=== PATIENT | female | born 1950 | race Caucasian/White ===

== ENCOUNTER 2017-11-30 09:39 | Day surgery (SDC) | payer MEDICARE, BC ==
[2017-11-30] MEDS ORDERED: Midazolam 1 MG/ML 2 ML SDV IV ONE (09:40)
[2017-11-30] MEDS ORDERED: Dexamethasone 4 MG/ML SDV IV ONE (09:40)
[2017-11-30] MEDS ORDERED: Sodium Chloride 0.9% 10 ML Syringe IV ONE (09:40)
[2017-11-30] MEDS ORDERED: Timolol Maleate 0.5% Ophth Soln 5 ML Bottle EYELF ONE (10:00)
[2017-11-30] MEDS ORDERED: Ondansetron 4 MG/2 ML SDV IVPUSH PRN (10:00)
[2017-11-30] MEDS ORDERED: Acetaminophen 325 MG Tab PO PRN (10:00)
[2017-11-30] MEDS ORDERED: Cataract Ophth Solution EYELF ONE (10:00)
[2017-11-30] MEDS ORDERED: Phenylephrine 10% Ophth Soln 5 ML Bot EYELF ONE (10:00)
[2017-11-30] MEDS ORDERED: Sodium Chloride 0.9% 10 ML Syringe FLUSH PRN (10:00)
[2017-11-30] MEDS ORDERED: Povidone-Iodine 5% Sterile Ophth Soln 30 ML Bottle EYELF ONE ×2 (10:00→11:14)
[2017-11-30] MEDS ORDERED: Phenylephrine 10% Ophth Soln 5 ML Bot EYELF PRN (10:00)
[2017-11-30] MEDS ORDERED: Proparacaine 0.5% Ophth Soln 15 ML Bottle EYELF ONE (10:00)
[2017-11-30] MEDS ORDERED: Moxifloxacin 0.5% Ophth Soln 3 ML Bottle EYELF ONE (10:00)
[2017-11-30] MEDS ORDERED: Tetracaine HCl/PF 0.5% 4 ML Bottle EYELF ONE (11:13)
[2017-11-30] MEDS ORDERED: Lidocaine 1% 30 ML SDV ONE (11:14)
[2017-11-30] MEDS ORDERED: Vancomycin 500 MG SDV EYELF ONE (11:14)
[2017-11-30] MEDS ORDERED: Balanced Salt Solution Ophth Irrig 500 ML Bottle IOCULAR ONE (11:15)
[2017-11-30] MEDS ORDERED: Chondroitin Sulfate/Hyaluronate Sodium Ophth Inj 0.75 ML Syringe EYELF ONE (11:16)
[2017-11-30] MEDS ORDERED: Dexamethasone/Neomycin/Polymyxin B Ophth Oint 3.5 GM Tube EYELF ONE (11:17)
[2017-11-30] MEDS ORDERED: Apraclonidine 0.5% Ophth Soln 5 ML Bot EYELF ONE (11:17)
--- NOTE | 2017-11-30 12:05 | OR ---
DATE: 11/30/2017 PREOPERATIVE DIAGNOSIS: Visually significant mixed cataract, left eye. POSTOPERATIVE DIAGNOSIS: Visually significant mixed cataract, left eye. PROCEDURE: Extracapsular cataract extraction with intraocular lens implant, left eye. ANESTHESIA: Topical/local MAC. COMPLICATIONS: None. INDICATION: Ms. Lee was seen in the clinic with complaints of blurred vision. Clinical examination reveals visually significant cataract. I explained options; I offered cataract surgery; and I explained risks including but not limited to infection, retinal detachment, loss of vision, and need for additional surgery. We discussed implant options. She has requested surgery with a monofocal implant. She does have preexisting corneal astigmatism, and she understands that her vision will be slightly limited without glasses. She has voiced an understanding with respect to risks, limitations, and wished to proceed. OPERATIVE DESCRIPTION: After informed consent was obtained and the risks, benefits, and alternatives were explained, the patient was brought to the operative suite and topical anesthesia was administered. The patient was then prepped and draped in the sterile fashion, and attention was placed on the left eye. A sterile lid speculum was placed into the left eye to allow operative exposure. A full-thickness paracentesis was made in the temporal portion of the operative eye. Preservative-free lidocaine 0.1 mL was injected into the anterior chamber followed by viscoelastic. A full-thickness corneal incision was then made into the anterior chamber. A bent needle cystotome was used to create a small kolby in the anterior capsule. The capsulorrhexis forceps was then used to create a 360-degree curvilinear capsulorrhexis. The nucleus was then removed using a phacoemulsification handpiece, and the remaining cortical material was then removed with irrigation and aspiration handpiece. Following removal of the cortical material, the capsular bag was then inspected and noted to be free of any holes or tears. Viscoelastic was then injected into the capsular bag, and the intraocular lens was inserted into the capsular bag. The viscoelastic material was then removed from both the anterior and posterior chambers and from behind the IOL. The lens and capsular bag were then reinspected. The IOL was well centered and the capsular bag intact. The wound and paracentesis sites were inspected and hydrated with balanced saline solution. Both were found to be self-sealing. The intraocular pressure was assessed digitally and found to be within normal range. A good red reflex was noted at the completion of the procedure. No complications occurred during the operation. At the completion of the procedure, Maxitrol, Voltaren, and Iopidine drops were placed into the operative eye. A sterile eye shield was placed over the operative eye, and the patient was transported to the postoperative recovery area having tolerated the procedure well. Postoperative instructions were given along with a postoperative appointment. The patient was advised to call with any questions or concerns. [facility] /[id number]
== END 2017-11-30 12:19 | disposition home or self-care (01) ==
LOC: DL.SDS 09:39
PROVIDERS: ATTEND Ophthalmology
DX: H25.812 Combined forms of age-related cataract, left eye (principal); J45.909 Unspecified asthma, uncomplicated; E78.5 Hyperlipidemia, unspecified; I10 Essential (primary) hypertension; E66.9 Obesity, unspecified; Z79.899 Other long term (current) drug therapy
CPT/HCPCS: 00142; A9270-GY; J1100; J2250; J3370; J7050; V2632

== ENCOUNTER 2017-12-07 06:35 | Day surgery (SDC) | payer MEDICARE, BC ==
[2017-12-07] MEDS ORDERED: Dexamethasone 4 MG/ML SDV IV ONE (06:36)
[2017-12-07] MEDS ORDERED: Sodium Chloride 0.9% 10 ML Syringe IV ONE (06:36)
[2017-12-07] MEDS ORDERED: Midazolam 1 MG/ML 2 ML SDV IV ONE (06:36)
[2017-12-07] MEDS ORDERED: Acetaminophen 325 MG Tab PO PRN (07:00)
[2017-12-07] MEDS ORDERED: Phenylephrine 10% Ophth Soln 5 ML Bot EYERT ONE (07:00)
[2017-12-07] MEDS ORDERED: Sodium Chloride 0.9% 10 ML Syringe FLUSH PRN (07:00)
[2017-12-07] MEDS ORDERED: Ondansetron 4 MG/2 ML SDV IVPUSH PRN (07:00)
[2017-12-07] MEDS ORDERED: Moxifloxacin 0.5% Ophth Soln 3 ML Bottle EYERT ONE (07:00)
[2017-12-07] MEDS ORDERED: Timolol Maleate 0.5% Ophth Soln 5 ML Bottle EYERT ONE (07:00)
[2017-12-07] MEDS ORDERED: Phenylephrine 10% Ophth Soln 5 ML Bot EYERT PRN (07:00)
[2017-12-07] MEDS ORDERED: Proparacaine 0.5% Ophth Soln 15 ML Bottle EYERT ONE (07:00)
[2017-12-07] MEDS ORDERED: Cataract Ophth Solution EYERT ONE (07:00)
[2017-12-07] MEDS ORDERED: Povidone-Iodine 5% Sterile Ophth Soln 30 ML Bottle EYERT ONE ×2 (07:00→08:11)
[2017-12-07] MEDS ORDERED: Tetracaine HCl/PF 0.5% 4 ML Bottle EYERT ONE (08:10)
[2017-12-07] MEDS ORDERED: Lidocaine 1% 30 ML SDV INJECT ONE (08:16)
[2017-12-07] MEDS ORDERED: Vancomycin 500 MG SDV EYERT ONE (08:17)
[2017-12-07] MEDS ORDERED: Balanced Salt Solution Ophth Irrig 500 ML Bottle IOCULAR ONE (08:18)
[2017-12-07] MEDS ORDERED: Chondroitin Sulfate/Hyaluronate Sodium Ophth Inj 0.75 ML Syringe EYERT ONE (08:19)
[2017-12-07] MEDS ORDERED: Dexamethasone/Neomycin/Polymyxin B Ophth Oint 3.5 GM Tube EYERT ONE (08:27)
[2017-12-07] MEDS ORDERED: Apraclonidine 0.5% Ophth Soln 5 ML Bot EYERT ONE (08:27)
--- NOTE | 2017-12-07 14:51 | OR ---
DATE: 12/07/2017 PREOPERATIVE DIAGNOSIS: Visually significant mixed cataract, right eye. POSTOPERATIVE DIAGNOSIS: Visually significant mixed cataract, right eye. PROCEDURE: Extracapsular cataract extraction with intraocular lens implant, right eye. ANESTHESIA: Topical/local MAC. COMPLICATIONS: None. INDICATION: Ms. Lee was seen in the clinic. She complains of starburst around lights, glare, difficulty with bright lights and glare, and a progressive change in vision. Clinical examination reveals mixed nuclear, cortical, and posterior subcapsular cataract. I explained options; offered cataract surgery; and I explained risks preoperatively including the potential for infection, retinal detachment, loss of vision, and need for additional surgery amongst others. We discussed implant options. She has requested a monofocal implant. She understands that she may require glasses following surgery. OPERATIVE DESCRIPTION: After informed consent was obtained and the risks, benefits, and alternatives were explained, the patient was brought to the operative suite and topical anesthesia was administered. The patient was then prepped and draped in the sterile fashion and attention was placed on the right eye. A sterile lid speculum was placed into the right eye to allow operative exposure. A full-thickness paracentesis was made in the temporal portion of the operative eye. Preservative-free lidocaine 0.1 mL was injected into the anterior chamber followed by viscoelastic. A full-thickness corneal incision was then made into the anterior chamber. A bent needle cystotome was used to create a small kolby in the anterior capsule. The capsulorrhexis forceps was then used to create a 360-degree curvilinear capsulorrhexis. The nucleus was then removed using a phacoemulsification handpiece, and the remaining cortical material was then removed with irrigation and aspiration handpiece. Following removal of the cortical material, the capsular bag was then inspected and noted to be free of any holes or tears. Viscoelastic was then injected into the capsular bag, and the intraocular lens was inserted into the capsular bag. The viscoelastic material was then removed from both the anterior and posterior chambers and from behind the IOL. The lens and capsular bag were then reinspected. The IOL was well centered and the capsular bag intact. The wound and paracentesis sites were inspected and hydrated with balanced saline solution. Both were found to be self-sealing. The intraocular pressure was assessed digitally and found to be within normal range. A good red reflex was noted at the completion of the procedure. No complications occurred during the operation. At the completion of the procedure, Maxitrol, Voltaren, and Iopidine drops were placed into the operative eye. A sterile eye shield was placed over the operative eye, and the patient was transported to the postoperative recovery area having tolerated the procedure well. Postoperative instructions were given along with a postoperative appointment. The patient was advised to call with any questions or concerns. [facility] /[id number]
== END 2017-12-07 09:30 | disposition home or self-care (01) ==
LOC: DL.SDS 06:35
PROVIDERS: ATTEND Ophthalmology
DX: H25.811 Combined forms of age-related cataract, right eye (principal); J45.909 Unspecified asthma, uncomplicated; I10 Essential (primary) hypertension; E78.5 Hyperlipidemia, unspecified; Z79.899 Other long term (current) drug therapy
CPT/HCPCS: 66984; A9270; J3370; J7050; 00142; J1100; J2250; V2632

== ENCOUNTER 2021-07-19 13:21 | Observation (INO) | payer MEDICARE, BC ==
[2021-07-19] MEDS ORDERED: Sodium Chloride 0.9% 10 ML Syringe FLUSH PRN (14:02)
[2021-07-19 14:30] LABS: PTT,PARTIAL THROMBOPLSTIN TIME 29.4 SEC (22.0-34.0)
[2021-07-19 14:34] LABS: ANION GAP 18.7 mEq/L (7-13); CHLORIDE,CL 98 mmol/L (98-107); SODIUM,NA 137 mmol/L (136-145)
[2021-07-19 14:50] LABS: CORONAVIRUS COVID-19 NAA NEGATIVE (NEGATIVE)
--- NOTE | 2021-07-19 14:57 | EDM.PDOC ---
<Herber Chambers - Last Filed: 07/19/21 16:06> ED HPI GENERAL MEDICAL PROBLEM - General Chief Complaint: Respiratory Problem Stated Complaint: SEVERE COLD Time Seen by Provider: 07/19/21 14:40 Source of Information: Reports: Patient, Old Records, RN History Limitations: Reports: No Limitations - History of Present Illness INITIAL COMMENTS - FREE TEXT/NARRATIVE: Patient is a 71 yo female with PMH of hypertension, T2DM, polycythemia vera, and hyperlipidemia who presents to the ED for shortness of breath. Symptoms started 07/12. Patient endorses SOB, cough, "full lungs", and diarrhea. She came in today due to her lungs feeling full and increased shortness of breath when she lays down. Nothing makes her symptoms better. Denies fever, chills, chest pain, palpitations, lower extremity edema, nausea, emesis, sick contacts, and covid exposure. Patient does see Dr. Bull for her polycythemia vera and gets routine blood letting. Generalized Pain Score (Numeric/FACES): 5 - Related Data Allergies Allergy/AdvReac Type Severity Reaction Status Date / Time No Known Allergies Allergy Verified 07/19/21 14:17 Home Meds: Home Meds Allopurinol [Zyloprim] 300 mg PO ASDIRECTED 07/19/21 [History] Aspirin 81 mg PO 07/19/21 [History] Furosemide 20 mg PO ASDIRECTED 07/19/21 [History] Hydroxyurea [Hydrea] 1,000 mg PO ACDINNER 07/19/21 [History] Hydroxyurea [Hydrea] 500 mg PO ASDIRECTED 07/19/21 [History] Losartan Potassium 100 mg PO 07/19/21 [History] atorvaSTATin [Lipitor] 20 mg PO BEDTIME 07/19/21 [History] metFORMIN [Glucophage] 500 mg PO BIDMEALS 07/19/21 [History] Past Medical History HEENT History: Reports: Cataract, Impaired Vision Other HEENT History: WEARS CORRECTIVE. CATARACT SURGERY TO LEFT EYE Cardiovascular History: Reports: Arrhythmia, High Cholesterol, Hypertension, Other (See Below) Other Cardiovascular History: HX OF VALVE PROLAPSE, PT STATES SHE NO LONGER HAS IT Respiratory History: Reports: Asthma, Bronchitis, Recurrent, Pneumonia, Recurrent Gastrointestinal History: Reports: None Genitourinary History: Reports: None GREEN END MAN History: Reports: Musculoskeletal History: Reports: Arthritis, Fracture, Other (See Below) Other Musculoskeletal History: degenerative disc disease. HX OF HAIR LINE FRACTURE IN RIGHT FOOT Neurological History: Reports: Migraines Psychiatric History: Reports: None Endocrine/Metabolic History: Reports: None, Diabetes, Type II Hematologic History: Reports: Anemia Other Hematologic History: HX OF ANEMIA WHEN SHE WAS 13 Immunologic History: Reports: None Oncologic (Cancer) History: Reports: None Dermatologic History: Reports: None - Infectious Disease History Infectious Disease History: Reports: Chicken Pox, Measles, Mumps - Past Surgical History Head Surgeries/Procedures: Reports: None HEENT Surgical History: Reports: Cataract Surgery, Tonsillectomy Cardiovascular Surgical History: Reports: None Respiratory Surgical History: Reports: None GI Surgical History: Reports: Appendectomy, Other (See Below) Other GI Surgeries/Procedures: SIGMOID SCOPE Female Surgical History: Reports: Other (See Below) Other Female Surgeries/Procedures: endometrial bx Endocrine Surgical History: Reports: None Neurological Surgical History: Reports: None Musculoskeletal Surgical History: Reports: None Oncologic Surgical History: Reports: None Dermatological Surgical History: Reports: None Social & Family History - Family History Family Medical History: No Pertinent Family History - Tobacco Use Tobacco Use Status *Q: Unknown Ever Used Tobacco - Caffeine Use Caffeine Use: Reports: None Other Caffeine Use: 1-2 SODA POP DAILY - Recreational Drug Use Recreational Drug Use: No ED ROS GENERAL - Review of Systems Review Of Systems: See Below Constitutional: Reports: No Symptoms. Denies: Fever, Chills HEENT: Reports: No Symptoms Respiratory: Reports: Shortness of Breath, Cough Cardiovascular: Reports: Dyspnea on Exertion. Denies: Chest Pain, Blood Pressure Problem, Edema Endocrine: Reports: No Symptoms GI/Abdominal: Reports: Diarrhea. Denies: Abdominal Pain, Hematochezia, Melena Musculoskeletal: Reports: No Symptoms Skin: Reports: No Symptoms Neurological: Reports: No Symptoms Psychiatric: Reports: No Symptoms Hematologic/Lymphatic: Reports: No Symptoms Immunologic: Reports: No Symptoms ED EXAM, GENERAL - Physical Exam Exam: See Below Exam Limited By: No Limitations General Appearance: Alert, WD/WN, No Apparent Distress Eye Exam: Bilateral Eye: EOMI, PERRL Nose: Normal Inspection Throat/Mouth: Normal Inspection Head: Atraumatic, Normocephalic Neck: Normal Inspection Respiratory/Chest: No Respiratory Distress, Decreased Breath Sounds (bilaterally). No: Crackles, Rales, Rhonchi, Wheezing Cardiovascular: Normal Peripheral Pulses, No Edema, No Gallop, No JVD, No Murmur, No Rub, Tachycardia GI/Abdominal: Normal Bowel Sounds, Soft, Non-Tender, No Organomegaly, No Distention, No Abnormal Bruit, No Mass Extremities: Normal Inspection, Normal Range of Motion Neurological: Alert, Oriented, CN II-XII Intact, Normal Cognition, Normal Gait, Normal Reflexes, No Motor/Sensory Deficits Psychiatric: Normal Affect, Normal Mood Skin Exam: Warm, Dry, Intact, Normal Color, No Rash Lymphatic: No Adenopathy #1 Interpretation EKG Date: 07/19/21 Time: 14:30 Rhythm: Other (Sinus tachycardia) Rate (Beats/Min): 120 Malone: Other ([place] RAD) P-Wave: Present QRS: Normal ST-T: Normal QT: Normal Comparison: NA - No Prior EKG EKG Interpretation Comments: Sinus tachycardia. No st changes. Boarder line right axis deviation. Departure - Departure Time of Disposition: 16:06 Disposition: Refer to Observation Condition: Good Clinical Impression: Community acquired bacterial pneumonia - Discharge Information *PRESCRIPTION DRUG MONITORING PROGRAM REVIEWED*: Not Applicable *COPY OF PRESCRIPTION DRUG MONITORING REPORT IN PATIENT TG: Not Applicable Forms: ED Department Discharge - Assessment/Plan Plan: Patient is a 71-year-old female being seen today for shortness of breath. Labs and imaging were performed in the emergency department. CT is significant for right middle lobe pneumonia. Due to patient's tachycardia, tachypnea, and low oxygen saturation we will plan on admitting her to the hospital. Discussed the case with Dr. Umana who agrees to admitting the patient. We will start her on Rocephin and azithromycin in the emergency department. Patient is agreeable to this plan. <Benja Snow - Last Filed: 07/19/21 16:48> Course - Vital Signs Last Recorded V/S: Last Vital Signs Temp 98.6 F 07/19/21 14:14 Pulse 128 H 07/19/21 14:14 Resp 24 H 07/19/21 14:14 BP 132/98 H 07/19/21 14:14 Pulse Ox 90 L 07/19/21 14:14 - Orders/Labs/Meds Orders: Active Orders 24 hr Category Date Time Status Admission Diagnosis [ADT] Stat ADT 07/19/21 16:09 Ordered Admission Status [Patient Status] [ADT] Routine ADT 07/19/21 16:09 Active Peripheral IV Care [RC] . DIRECTED Care 07/19/21 14:02 Active CBC WITH AUTO DIFF [HEME] Stat Lab 07/19/21 13:45 Results CULTURE BLOOD [BC] Stat Lab 07/19/21 13:45 Received CULTURE BLOOD [BC] Stat Lab 07/19/21 14:02 Ordered MANUAL DIFFERENTIAL QA/NC [HEME] Stat Lab 07/19/21 13:45 Results UA RFX LIDIA AND CULT IF INDIC [URIN] Stat Lab 07/19/21 16:06 Ordered Azithromycin [Zithromax] 500 mg Med 07/19/21 15:58 Active Sodium Chloride 0.9% [Normal Saline AdvBag] 250 ml IV ONETIME Sodium Chloride 0.9% [Saline Flush] Med 07/19/21 14:02 Active 10 ml FLUSH ASDIRECTED PRN Blood Culture x2 Reflex Set [OM.PC] Stat Oth 07/19/21 14:01 Ordered Peripheral IV Insertion Adult [OM.PC] Stat Oth 07/19/21 14:02 Ordered Medication Orders Azithromycin 500 mg/ Sodium (Chloride) 250 mls @ 250 mls/hr IV ONETIME ONE Stop: 07/19/21 16:57 Last Admin: 07/19/21 16:31 Dose: 250 mls/hr Documented by: SOFIE Sodium Chloride (Sodium Chloride 0.9% 10 Ml Syringe) 10 ml FLUSH ASDIRECTED PRN PRN Reason: Keep Vein Open Labs: Laboratory Tests 07/19/21 07/19/21 07/19/21 Range/Units 13:45 13:45 13:45 WBC 28.7 H* (5.0-10.0) 10^3/uL RBC 4.19 L (4.2-5.4) 10^6/uL Hgb 13.9 (12.0-16.0) g/dL Hct 42.2 (37.0-47.0) % MCV 100.7 H (80-100) fL MCH 33.2 (27.0-34.0) pg MCHC 32.9 L (33.0-35.0) g/dL Plt Count 263 (150-450) 10^3/uL Neut % (Auto) 91.4 H (42.2-75.2) % Lymph % (Auto) 2.4 L (20.5-50.1) % [place] % (Auto) 6.0 (2-8) % Eos % (Auto) 0.0 L (1.0-3.0) % Baso % (Auto) 0.2 (0.0-1.0) % Add Manual Diff Yes PT (9.0-12.0) SEC INR (0.9-1.2) APTT (22.0-34.0) SEC D-Dimer, Quantitative (0-400) ng/mL Sodium 137 (136-145) mmol/L Potassium 4.7 (3.5-5.1) mmol/L Chloride 98 (98-107) mmol/L Carbon Dioxide 25 (21-32) mmol/L Anion Gap 18.7 H (7-13) mEq/L BUN 25 H (7-18) mg/dL Creatinine 0.91 (0.55-1.02) mg/dL Est Cr Clr Drug Dosing 46.23 mL/min Estimated GFR (MDRD) > 60 BUN/Creatinine Ratio 27.5 (No establ ref range) Glucose 139 H (70-99) mg/dL Lactic Acid (0.4-2.0) mmol/L Calcium 9.3 (8.5-10.1) mg/dL Magnesium 2.2 (1.8-2.4) mg/dL Ferritin (8-252) mg/mL Total Bilirubin 1.3 H (0.2-1.0) mg/dL AST 41 H (15-37) U/L ALT 17 (14-59) U/L Alkaline Phosphatase 141 H (46-116) U/L Troponin I High Sens 23 (<=51) pg/mL C-Reactive Protein < 0.2 (0.0-0.9) mg/dL B-Natriuretic Peptide 85 (0-100) pg/ml Total Protein 8.0 (6.4-8.2) g/dL Albumin 2.9 L (3.4-5.0) g/dL Globulin 5.1 Albumin/Globulin Ratio 0.57 Influenza Type A RNA Negative (NEGATIVE) Influenza Type B RNA Negative (NEGATIVE) SARS-CoV-2 RNA ([place]AT[place]INA) Negative (NEGATIVE) 07/19/21 07/19/2121 Range/Units 13:45 13:45 13:45 WBC (5.0-10.0) 10^3/uL RBC (4.2-5.4) 10^6/uL Hgb (12.0-16.0) g/dL Hct (37.0-47.0) % MCV (80-100) fL MCH (27.0-34.0) pg MCHC (33.0-35.0) g/dL Plt Count (150-450) 10^3/uL Neut % (Auto) (42.2-75.2) % Lymph % (Auto) (20.5-50.1) % [place] % (Auto) (2-8) % Eos % (Auto) (1.0-3.0) % Baso % (Auto) (0.0-1.0) % Add Manual Diff PT 10.7 (9.0-12.0) SEC INR 1.1 (0.9-1.2) APTT 29.4 (22.0-34.0) SEC D-Dimer, Quantitative 2020 H (0-400) ng/mL Sodium (136-145) mmol/L Potassium (3.5-5.1) mmol/L Chloride (98-107) mmol/L Carbon Dioxide (21-32) mmol/L Anion Gap (7-13) mEq/L BUN (7-18) mg/dL Creatinine (0.55-1.02) mg/dL Est Cr Clr Drug Dosing mL/min Estimated GFR (MDRD) BUN/Creatinine Ratio (No establ ref range) Glucose (70-99) mg/dL Lactic Acid 1.6 (0.4-2.0) mmol/L Calcium (8.5-10.1) mg/dL Magnesium (1.8-2.4) mg/dL Ferritin 230 (8-252) mg/mL Total Bilirubin (0.2-1.0) mg/dL AST (15-37) U/L ALT (14-59) U/L Alkaline Phosphatase (46-116) U/L Troponin I High Sens (<=51) pg/mL C-Reactive Protein (0.0-0.9) mg/dL B-Natriuretic Peptide (0-100) pg/ml Total Protein (6.4-8.2) g/dL Albumin (3.4-5.0) g/dL Globulin Albumin/Globulin Ratio Influenza Type A RNA (NEGATIVE) Influenza Type B RNA (NEGATIVE) SARS-CoV-2 RNA (KATARINA) (NEGATIVE) Meds: Medications Generic Name Dose Route Start Last Admin Trade Name Freq PRN Reason Stop Dose Admin Azithromycin 500 mg/ Sodium 250 mls @ 250 mls/hr 07/19/21 15:58 07/19/21 16:31 Chloride IV 07/19/21 16:57 250 mls/hr ONETIME ONE Administration Sodium Chloride 10 ml 07/19/21 14:02 Sodium Chloride 0.9% 10 Ml Syringe FLUSH ASDIRECTED PRN Keep Vein Open Discontinued Medications Generic Name Dose Route Start Last Admin Trade Name Freq PRN Reason Stop Dose Admin Ceftriaxone Sodium 2 gm/ 100 mls @ 200 mls/hr 07/19/21 15:57 07/19/21 16:30 Sodium Chloride IV 07/19/21 16:26 200 mls/hr ONETIME ONE Administration Iopamidol 100 ml 07/19/21 15:14 07/19/21 15:42 Iopamidol 755 Mg/Ml 100 Ml Bottle IVPUSH 07/19/21 15:15 57 ml ONETIME ONE Administration - Radiology Interpretation Free Text/Narrative:: [facility] Final Radiology Report Call: [phone] assistance Online chat: [email or web address] Name: REINIER SUTTON Age: 71Years F Date: 07/19/2021 SSN: -- : [id number] Study: CT CHEST W CONT Requesting Physician: Herber Chambers Images: [id number] Addl Studies: Provided Clinical History: SOB w/ elevated ddimer Contrast: With Contrast Medium: Isovue 300 Contrast Amount: 57 mL Contrast Method: Intravenous (IV) Page 1 of 2 PROCEDURE INFORMATION: Exam: CT Chest With Contrast; Diagnostic Exam date and time: 07/19/2021 3:22 PM Age: 71 years old Clinical indication: Other: SOB w/ elevated ddimer TECHNIQUE: Imaging protocol: Diagnostic computed tomography of the chest with contrast. Radiation optimization: All CT scans at this facility use at least one of these dose optimization techniques: automated exposure control; mA and/or kV adjustment per patient size (includes targeted exams where dose is matched to clinical indication); or iterative reconstruction. Contrast material: ISOVUE 300; Contrast volume: 57 ml; Contrast route: INTRAVENOUS (IV); COMPARISON: CT Chest w Cont 09/22/2020 9:15 AM FINDINGS: Lungs: Patchy consolidation in the right upper lobe. Persistent atelectasis of the right middle lobe. Pleural spaces: Unremarkable. No pneumothorax. No pleural effusion. Heart: Stable mild cardiomegaly. No pericardial effusion. Aorta: Unremarkable. No aortic aneurysm. Lymph nodes: Stable mild mediastinal adenopathy, likely reactive. Bones/joints: Unremarkable. No acute fracture. Soft tissues: Unremarkable. IMPRESSION: 1. Right upper lobe pneumonia. 2. Stable right middle lobe atelectasis. 3. No other new findings. ERINIER SUTTON | Final Radiology Report CONFIDENTIALITY STATEMENT This report is intended only for use by the referring physician, and only in accordance with law. If you received this in error, call [phone]. Page 2 of 2 Thank you for allowing us to participate in the care of your patient. Dictated and Authenticated by: Rizwan Melton MD 07/19/2021 3:55 PM Central Time ([place] & [place]) - Re-Assessments/Exams Free Text/Narrative Re-Assessment/Exam: 07/19/21 I saw and evaluated the patient. Discussed with resident and agree with residents findings and plan as documented in the residents note. Sepsis Event Note (ED) - Focused Exam Vital Signs: Vital Signs Temp Pulse Resp BP Pulse Ox 07/19/21 14:14 98.6 F 128 H 24 H 132/98 H 90 L - My Orders Last 24 Hours: My Active Orders 07/19/21 13:45 CBC WITH AUTO DIFF [HEME] Stat CULTURE BLOOD [BC] Stat MANUAL DIFFERENTIAL QA/NC [HEME] Stat 07/19/21 14:01 Blood Culture x2 Reflex Set [OM.PC] Stat 07/19/21 14:02 Peripheral IV Care [RC] . DIRECTED CULTURE BLOOD [BC] Stat Sodium Chloride 0.9% [Saline Flush] 10 ml FLUSH ASDIRECTED PRN Peripheral IV Insertion Adult [OM.PC] Stat 07/19/21 15:58 Azithromycin [Zithromax] 500 mg Sodium Chloride 0.9% [Normal Saline AdvBag] 250 ml IV ONETIME 07/19/21 16:06 UA RFX LIDIA AND CULT IF INDIC [URIN] Stat 07/19/21 16:09 Admission Diagnosis [ADT] Stat Admission Status [Patient Status] [ADT] Routine - Assessment/Plan Last 24 Hours: My Active Orders 07/19/21 13:45 CBC WITH AUTO DIFF [HEME] Stat CULTURE BLOOD [BC] Stat MANUAL DIFFERENTIAL QA/NC [HEME] Stat 07/19/21 14:01 Blood Culture x2 Reflex Set [OM.PC] Stat 07/19/21 14:02 Peripheral IV Care [RC] . DIRECTED CULTURE BLOOD [BC] Stat Sodium Chloride 0.9% [Saline Flush] 10 ml FLUSH ASDIRECTED PRN Peripheral IV Insertion Adult [OM.PC] Stat 07/19/21 15:58 Azithromycin [Zithromax] 500 mg Sodium Chloride 0.9% [Normal Saline AdvBag] 250 ml IV ONETIME 07/19/21 16:06 UA RFX LIDIA AND CULT IF INDIC [URIN] Stat 07/19/21 16:09 Admission Diagnosis [ADT] Stat Admission Status [Patient Status] [ADT] Routine
[2021-07-19] MEDS ORDERED: Iopamidol 755 Mg/ML 100 ML Bottle IVPUSH ONE (15:14)
--- NOTE | 2021-07-19 15:55 | CT ---
PROCEDURE INFORMATION: Exam: CT Chest With Contrast; Diagnostic Exam date and time: 07/19/2021 3:22 PM Age: 71 years old Clinical indication: Other: SOB w/ elevated ddimer TECHNIQUE: Imaging protocol: Diagnostic computed tomography of the chest with contrast. Radiation optimization: All CT scans at this facility use at least one of these dose optimization techniques: automated exposure control; mA and/or kV adjustment per patient size (includes targeted exams where dose is matched to clinical indication); or iterative reconstruction. Contrast material: ISOVUE 300; Contrast volume: 57 ml; Contrast route: INTRAVENOUS (IV); COMPARISON: CT Chest w Cont 09/22/2020 9:15 AM FINDINGS: Lungs: Patchy consolidation in the right upper lobe. Persistent atelectasis of the right middle lobe. Pleural spaces: Unremarkable. No pneumothorax. No pleural effusion. Heart: Stable mild cardiomegaly. No pericardial effusion. Aorta: Unremarkable. No aortic aneurysm. Lymph nodes: Stable mild mediastinal adenopathy, likely reactive. Bones/joints: Unremarkable. No acute fracture. Soft tissues: Unremarkable. IMPRESSION: 1. Right upper lobe pneumonia. 2. Stable right middle lobe atelectasis. 3. No other new findings.
[2021-07-19] MEDS ORDERED: cefTRIAXone 2 GM in Sodium Chloride 0.9% 100 ML IV ONE (15:57)
[2021-07-19] MEDS ORDERED: Azithromycin 500 MG in Sodium Chloride 0.9% 250 ML IV ONE (15:58)
[2021-07-19] MEDS ORDERED: Polyethylene Glycol 3350 Powder 17 GM Packet PO PRN (17:24)
[2021-07-19] MEDS ORDERED: Albuterol/Ipratropium 3.0-0.5 MG/3 ML Neb Soln NEB PRN (17:24)
[2021-07-19] MEDS ORDERED: Ondansetron 4 MG Tab.DIS PO PRN (17:24)
[2021-07-19] MEDS ORDERED: Acetaminophen 325 MG Tab PO PRN (17:24)
[2021-07-19] MEDS ORDERED: Furosemide 20 MG Tab PO SCH (17:30)
[2021-07-19] MEDS: Lactated Ringers 1,000 ML IV SCH (18:10)
--- NOTE | 2021-07-19 18:14 | PCM.HP ---
H&P History of Present Illness - General Date of Service: 07/19/21 Admit Problem/Dx: Admission Diagnosis/Problem Admission Diagnosis/Problem community acquired Pneumonia Source of Information: Patient, Provider - History of Present Illness Initial Comments - Free Text/Narative: Susan is a 71 yo female with PMH of hypertension, T2DM, polycythemia vera, and hyperlipidemia who presents to the ED for shortness of breath. Symptoms started 07/12. Patient endorses SOB, cough, "full lungs", and diarrhea. she tried rest and OTC medication at home with no improvement. cough is productive and has not been improving. She states she has gotten more short of breath in the past day or two which is why she came to the ED. movement and activity and coughing make shortness of breath worse. rest makes it slightly better but not all the way. time of day doesn't matter. she has had this happen before and has a history of recurrent PNA. Onset of Symptoms: Reports: Gradual Duration of Symptoms: Reports: Day(s): Location: Reports: Chest Severity: Mild Improves with: Reports: None Worsens with: Reports: Breathing Context: Reports: Sick Contact Associated Symptoms: Reports: cough w sputum, Shortness of Breath Generalized Pain Score (Numeric/FACES): 5 - Related Data Allergies/Adverse Reactions: Allergies Allergy/AdvReac Type Severity Reaction Status Date / Time No Known Allergies Allergy Verified 07/19/21 18:01 Home Medications: Home Meds Allopurinol [Zyloprim] 300 mg PO ASDIRECTED 07/19/21 [History] Aspirin 81 mg PO 07/19/21 [History] Furosemide 20 mg PO ASDIRECTED 07/19/21 [History] Hydroxyurea [Hydrea] 1,000 mg PO ACDINNER 07/19/21 [History] Hydroxyurea [Hydrea] 500 mg PO ASDIRECTED 07/19/21 [History] Losartan Potassium 100 mg PO 07/19/21 [History] atorvaSTATin [Lipitor] 20 mg PO BEDTIME 07/19/21 [History] metFORMIN [Glucophage] 500 mg PO BIDMEALS 07/19/21 [History] Past Medical History HEENT History: Reports: Cataract, Impaired Vision Other HEENT History: WEARS CORRECTIVE. 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 HX OF HAIR LINE FRACTURE IN RIGHT FOOT Neurological History: Reports: Migraines Psychiatric History: Reports: None Endocrine/Metabolic History: Reports: None, Diabetes, Type II Hematologic History: Reports: Anemia, Polycythemia Other Hematologic History: HX OF ANEMIA WHEN SHE WAS 13 Immunologic History: Reports: None Oncologic (Cancer) History: Reports: None Dermatologic History: Reports: None - Infectious Disease History Infectious Disease History: Reports: Chicken Pox, Measles, Mumps - Past Surgical History Head Surgeries/Procedures: Reports: None HEENT Surgical History: Reports: Cataract Surgery, Tonsillectomy Cardiovascular Surgical History: Reports: None Respiratory Surgical History: Reports: None GI Surgical History: Reports: Appendectomy, Other (See Below) Other GI Surgeries/Procedures: SIGMOID SCOPE Female Surgical History: Reports: Other (See Below) Other Female Surgeries/Procedures: endometrial bx Endocrine Surgical History: Reports: None Neurological Surgical History: Reports: None Musculoskeletal Surgical History: Reports: None Oncologic Surgical History: Reports: None Dermatological Surgical History: Reports: None Social & Family History - Family History Family Medical History: No Pertinent Family History - Tobacco Use Tobacco Use Status *Q: Never Tobacco User - Caffeine Use Caffeine Use: Reports: Soda Other Caffeine Use: 1-2 SODA POP DAILY - Alcohol Use Alcohol Use History: Yes Alcohol Use Frequency: Rarely - Recreational Drug Use Recreational Drug Use: No H&P Review of Systems - Review of Systems: Review Of Systems: See Below General: Reports: Weakness. Denies: Fever, Chills, Diaphoresis HEENT: Reports: Glasses. Denies: No Symptoms Pulmonary: Reports: Shortness of Breath, Cough, Sputum. Denies: Wheezing, Hemoptysis Cardiovascular: Reports: Dyspnea on Exertion. Denies: Chest Pain, Blood Pressure Problem Gastrointestinal: Reports: No Symptoms Genitourinary: Reports: No Symptoms Musculoskeletal: Reports: No Symptoms Skin: Reports: No Symptoms Psychiatric: Reports: No Symptoms Neurological: Reports: No Symptoms Hematologic/Lymphatic: Reports: Anemia Immunologic: Reports: No Symptoms Exam - Exam Exam: See Below - Vital Signs Vital Signs: Last Vital Signs Temp 99.4 F 07/19/21 17:15 Pulse 99 07/19/21 17:15 Resp 20 07/19/21 17:15 BP 133/72 07/19/21 17:15 Pulse Ox 97 07/19/21 17:15 Weight: 131 lb - Exam Quality Assessment: Supplemental Oxygen, DVT Prophylaxis. No: Skin Breakdown General: Alert, Oriented, Cooperative. No: Mild Distress, Lethargic HEENT: EOMI, Pupils Equal, Glasses Neck: Supple, Full Range of Motion Lungs: Normal Respiratory Effort, Rhonchi (scattered diffuse). No: Decreased Breath Sounds, Rub, Wheezing Cardiovascular: Regular Rate, Regular Rhythm. No: Systolic Murmur, Diastolic Murmur GI/Abdominal Exam: Soft, Non-Tender, No Distention (Female) Exam: Deferred Rectal (Female) Exam: Deferred Back Exam: Normal Inspection Extremities: Normal Inspection, Normal Range of Motion, Non-Tender, No Pedal Edema Skin: Warm, Dry, Intact Neuro Extensive - Mental Status: Oriented x3, Normal Mood/Affect, Normal Cognition Psychiatric: Normal Affect, Normal Mood - Patient Data Lab Results Last 24 hrs: Laboratory Results - last 24 hr 07/19/21 07/19/21 07/19/21 Range/Units 13:45 13:45 13:45 WBC 28.7 H* (5.0-10.0) 10^3/uL RBC 4.19 L (4.2-5.4) 10^6/uL Hgb 13.9 (12.0-16.0) g/dL Hct 42.2 (37.0-47.0) % MCV 100.7 H (80-100) fL MCH 33.2 (27.0-34.0) pg MCHC 32.9 L (33.0-35.0) g/dL Plt Count 263 (150-450) 10^3/uL Neut % (Auto) 91.4 H (42.2-75.2) % Lymph % (Auto) 2.4 L (20.5-50.1) % Maverick % (Auto) 6.0 (2-8) % Eos % (Auto) 0.0 L (1.0-3.0) % Baso % (Auto) 0.2 (0.0-1.0) % Add Manual Diff Yes PT (9.0-12.0) SEC INR (0.9-1.2) APTT (22.0-34.0) SEC D-Dimer, Quantitative (0-400) ng/mL Sodium 137 (136-145) mmol/L Potassium 4.7 (3.5-5.1) mmol/L Chloride 98 (98-107) mmol/L Carbon Dioxide 25 (21-32) mmol/L Anion Gap 18.7 H (7-13) mEq/L BUN 25 H (7-18) mg/dL Creatinine 0.91 (0.55-1.02) mg/dL Est Cr Clr Drug Dosing 46.23 mL/min Estimated GFR (MDRD) > 60 BUN/Creatinine Ratio 27.5 (No establ ref range) Glucose 139 H (70-99) mg/dL Lactic Acid (0.4-2.0) mmol/L Calcium 9.3 (8.5-10.1) mg/dL Magnesium 2.2 (1.8-2.4) mg/dL Ferritin (8-252) mg/mL Total Bilirubin 1.3 H (0.2-1.0) mg/dL AST 41 H (15-37) U/L ALT 17 (14-59) U/L Alkaline Phosphatase 141 H (46-116) U/L Troponin I High Sens 23 (<=51) pg/mL C-Reactive Protein < 0.2 (0.0-0.9) mg/dL B-Natriuretic Peptide 85 (0-100) pg/ml Total Protein 8.0 (6.4-8.2) g/dL Albumin 2.9 L (3.4-5.0) g/dL Globulin 5.1 Albumin/Globulin Ratio 0.57 Urine Color (YELLOW) Urine Appearance (CLEAR) Urine pH (5.0-9.0) Ur Specific [place] (1.005-1.030) Urine Protein (NEGATIVE) Urine Glucose (UA) (NEGATIVE) Urine Ketones (NEGATIVE) Urine Occult Blood (NEGATIVE) Urine Nitrite (NEGATIVE) Urine Bilirubin (NEGATIVE) Urine Urobilinogen (0.2-1.0) mg/dL Ur Leukocyte Esterase (NEGATIVE) Urine RBC (0-5) /HPF Urine WBC (0-5/HPF) /HPF Ur Epithelial Cells (NOT SEEN) /HPF Urine Bacteria (0-FEW/HPF) /HPF Influenza Type A RNA Negative (NEGATIVE) Influenza Type B RNA Negative (NEGATIVE) SARS-CoV-2 RNA (KATARINA) Negative (NEGATIVE) 07/19/21 07/19/21 07/19/21 Range/Units 13:45 13:45 13:45 WBC (5.0-10.0) 10^3/uL RBC (4.2-5.4) 10^6/uL Hgb (12.0-16.0) g/dL Hct (37.0-47.0) % MCV (80-100) fL MCH (27.0-34.0) pg MCHC (33.0-35.0) g/dL Plt Count (150-450) 10^3/uL Neut % (Auto) (42.2-75.2) % Lymph % (Auto) (20.5-50.1) % Maverick % (Auto) (2-8) % Eos % (Auto) (1.0-3.0) % Baso % (Auto) (0.0-1.0) % Add Manual Diff PT 10.7 (9.0-12.0) SEC INR 1.1 (0.9-1.2) APTT 29.4 (22.0-34.0) SEC D-Dimer, Quantitative 2020 H (0-400) ng/mL Sodium (136-145) mmol/L Potassium (3.5-5.1) mmol/L Chloride (98-107) mmol/L Carbon Dioxide (21-32) mmol/L Anion Gap (7-13) mEq/L BUN (7-18) mg/dL Creatinine (0.55-1.02) mg/dL Est Cr Clr Drug Dosing mL/min Estimated GFR (MDRD) BUN/Creatinine Ratio (No establ ref range) Glucose (70-99) mg/dL Lactic Acid 1.6 (0.4-2.0) mmol/L Calcium (8.5-10.1) mg/dL Magnesium (1.8-2.4) mg/dL Ferritin 230 (8-252) mg/mL Total Bilirubin (0.2-1.0) mg/dL AST (15-37) U/L ALT (14-59) U/L Alkaline Phosphatase (46-116) U/L Troponin I High Sens (<=51) pg/mL C-Reactive Protein (0.0-0.9) mg/dL B-Natriuretic Peptide (0-100) pg/ml Total Protein (6.4-8.2) g/dL Albumin (3.4-5.0) g/dL Globulin Albumin/Globulin Ratio Urine Color (YELLOW) Urine Appearance (CLEAR) Urine pH (5.0-9.0) Ur Specific [place] (1.005-1.030) Urine Protein (NEGATIVE) Urine Glucose (UA) (NEGATIVE) Urine Ketones (NEGATIVE) Urine Occult Blood (NEGATIVE) Urine Nitrite (NEGATIVE) Urine Bilirubin (NEGATIVE) Urine Urobilinogen (0.2-1.0) mg/dL Ur Leukocyte Esterase (NEGATIVE) Urine RBC (0-5) /HPF Urine WBC (0-5/HPF) /HPF Ur Epithelial Cells (NOT SEEN) /HPF Urine Bacteria (0-FEW/HPF) /HPF Influenza Type A RNA (NEGATIVE) Influenza Type B RNA (NEGATIVE) SARS-CoV-2 RNA (KATARINA) (NEGATIVE) 07/19/21 Range/Units 15:55 WBC (5.0-10.0) 10^3/uL RBC (4.2-5.4) 10^6/uL Hgb (12.0-16.0) g/dL Hct (37.0-47.0) % MCV (80-100) fL MCH (27.0-34.0) pg MCHC (33.0-35.0) g/dL Plt Count (150-450) 10^3/uL Neut % (Auto) (42.2-75.2) % Lymph % (Auto) (20.5-50.1) % Maverick % (Auto) (2-8) % Eos % (Auto) (1.0-3.0) % Baso % (Auto) (0.0-1.0) % Add Manual Diff PT (9.0-12.0) SEC INR (0.9-1.2) APTT (22.0-34.0) SEC D-Dimer, Quantitative (0-400) ng/mL Sodium (136-145) mmol/L Potassium (3.5-5.1) mmol/L Chloride (98-107) mmol/L Carbon Dioxide (21-32) mmol/L Anion Gap (7-13) mEq/L BUN (7-18) mg/dL Creatinine (0.55-1.02) mg/dL Est Cr Clr Drug Dosing mL/min Estimated GFR (MDRD) BUN/Creatinine Ratio (No establ ref range) Glucose (70-99) mg/dL Lactic Acid (0.4-2.0) mmol/L Calcium (8.5-10.1) mg/dL Magnesium (1.8-2.4) mg/dL Ferritin (8-252) mg/mL Total Bilirubin (0.2-1.0) mg/dL AST (15-37) U/L ALT (14-59) U/L Alkaline Phosphatase (46-116) U/L Troponin I High Sens (<=51) pg/mL C-Reactive Protein (0.0-0.9) mg/dL B-Natriuretic Peptide (0-100) pg/ml Total Protein (6.4-8.2) g/dL Albumin (3.4-5.0) g/dL Globulin Albumin/Globulin Ratio Urine Color Yellow (YELLOW) Urine Appearance Cloudy (CLEAR) Urine pH 5.5 (5.0-9.0) Ur Specific [place] 1.010 (1.005-1.030) Urine Protein 30 H (NEGATIVE) Urine Glucose (UA) Negative (NEGATIVE) Urine Ketones 15 H (NEGATIVE) Urine Occult Blood Moderate H (NEGATIVE) Urine Nitrite Negative (NEGATIVE) Urine Bilirubin Small H (NEGATIVE) Urine Urobilinogen 1.0 (0.2-1.0) mg/dL Ur Leukocyte Esterase Trace H (NEGATIVE) Urine RBC 10-20 H (0-5) /HPF Urine WBC 10-20 H (0-5/HPF) /HPF Ur Epithelial Cells Moderate H (NOT SEEN) /HPF Urine Bacteria Moderate H (0-FEW/HPF) /HPF Influenza Type A RNA (NEGATIVE) Influenza Type B RNA (NEGATIVE) SARS-CoV-2 RNA (KATARINA) (NEGATIVE) Result Diagrams: 07/19/21 13:45 07/19/21 13:45 Problem List Initiated/Reviewed/Updated: Yes Orders Last 24hrs: Active Orders 24 hr Category Date Time Status Admission Diagnosis [ADT] Stat ADT 07/19/21 16:09 Ordered Admission Status [Patient Status] [ADT] Routine ADT 07/19/21 16:09 Active Height and Weight [RC] UPON Care 07/19/21 17:24 Active Intake and Output [RC] QSHIFT Care 07/19/21 17:25 Active May Shower [RC] ASDIRECTED Care 07/19/21 17:24 Active Oxygen Therapy [RC] PRN Care 07/19/21 17:24 Active Pneumonia Education [RC] Click to Edit Care 07/19/21 17:24 Active RT Aerosol Therapy [RC] ASDIRECTED Care 07/19/21 17:27 Active Up With Assistance [RC] ASDIRECTED Care 07/19/21 17:24 Active VTE/DVT Education [RC] PER UNIT ROUTINE Care 07/19/21 17:24 Active Vital Signs [RC] 08,20 Care 07/19/21 17:24 Active Regular Diet [DIET] Diet 07/19/21 Dinner Active BASIC METABOLIC PANEL,BMP [CHEM] AM Lab 07/20/21 05:11 Ordered CBC W/O DIFF,HEMOGRAM [HEME] AM Lab 07/20/21 05:11 Ordered CBC WITH AUTO DIFF [HEME] Stat Lab 07/19/21 13:45 Results CULTURE BLOOD [BC] Stat Lab 07/19/21 13:45 Received CULTURE BLOOD [BC] Stat Lab 07/19/21 15:22 Received CULTURE URINE [RM] Stat Lab 07/19/21 15:55 Received MANUAL DIFFERENTIAL QA/NC [HEME] Stat Lab 07/19/21 13:45 Results Acetaminophen [TylenoL] Med 07/19/21 17:24 Active 650 mg PO Q4H PRN Albuterol/Ipratropium [DuoNeb 3.0-0.5 MG/3 ML] Med 07/19/21 17:24 Active 3 ml NEB Q4H PRN Aspirin Med 07/19/21 17:30 Unverified DOSE UNIT RTE FREQ Enoxaparin [Lovenox] Med 07/20/21 09:00 Active 40 mg SUBCUT DAILY Furosemide [Lasix] Med 07/19/21 17:30 Pending 20 mg PO ASDIRECTED Lactated Ringers [Ringers, Lactated] 1,000 ml Med 07/19/21 17:30 Active IV ASDIRECTED Losartan Potassium [Losartan Potassium] Med 07/19/21 17:30 Unverified DOSE UNIT RTE FREQ Ondansetron [Zofran ODT] Med 07/19/21 17:24 Active 4 mg PO Q6H PRN Sodium Chloride 0.9% [Saline Flush] Med 07/19/21 14:02 Active 10 ml FLUSH ASDIRECTED PRN allopurinoL [Zyloprim] Med 07/19/21 17:30 Pending 300 mg PO ASDIRECTED atorvaSTATin [Lipitor] Med 07/19/21 21:00 Active 20 mg PO BEDTIME polyethylene glycoL 3350 [MiraLAX] Med 07/19/21 17:24 Active 17 gm PO DAILY PRN Blood Culture x2 Reflex Set [OM.PC] Stat Oth 07/19/21 14:01 Ordered Peripheral IV Insertion Adult [OM.PC] Stat Oth 07/19/21 14:02 Ordered Resuscitation Status Routine Resus Stat 07/19/21 17:24 Ordered Medication Orders Acetaminophen (Acetaminophen 325 Mg Tab) 650 mg PO Q4H PRN PRN Reason: Pain (Mild 1-3)/fever Albuterol/Ipratropium (Albuterol/Ipratropium 3.0-0.5 Mg/3 Ml Neb Soln) 3 ml NEB Q4H PRN PRN Reason: shortness of breath/wheezing Allopurinol (Allopurinol 300 Mg Tab) 300 mg PO ASDIRECTED [facility] Atorvastatin Calcium (Atorvastatin 20 Mg Tab) 20 mg PO BEDTIME KIMANI Enoxaparin Sodium (Enoxaparin 40 Mg/0.4 Ml Syringe) 40 mg SUBCUT DAILY KIMANI Furosemide (Furosemide 20 Mg Tab) 20 mg PO ASDIRECTED [facility] Lactated Ringer's (Ringers, Lactated) 1,000 mls @ 100 mls/hr IV ASDIRECTED [facility] Last Admin: 07/19/21 18:10 Dose: 100 mls/hr Documented by: GERA Ondansetron HCl (Ondansetron 4 Mg Tab.Dis) 4 mg PO Q6H PRN PRN Reason: nausea, able to take PO Polyethylene Glycol (Polyethylene Glycol 3350 Powder 17 Gm Packet) 17 gm PO DAILY PRN PRN Reason: Constipation Sodium Chloride (Sodium Chloride 0.9% 10 Ml Syringe) 10 ml FLUSH ASDIRECTED PRN PRN Reason: Keep Vein Open Assessment/Plan Comment:: ACTIVE PROBLEMS: Community-acquired pneumonia: - CT chest: Patchy consolidation of the right upper lobe. Atelectasis of the right middle lobe. -Started on ceftriaxone and azithromycin IV in the emergency department -Currently not requiring any supplemental oxygen Plan: -Continue IV ceftriaxone and azithromycin -Monitor oxygen saturation as needed -Incentive spirometry every 2 hours while awake Chronic conditions: Continue current home medications as ordered -Polycythemia vera: Treated with phlebotomy. Currently within goal -Type 2 diabetes mellitus, [id number], well controlled: Treated with diet only. Currently on no antidiabetic agents -Essential hypertension: -Mixed hyperlipidemia -MANFRED, unspecified CPAP -Unspecified asthma -History of iron deficiency anemia CODE STATUS: Full code DVT prophylaxis: Subcu Lovenox
[2021-07-19] MEDS ORDERED: atorvaSTATin 20 MG Tab PO SCH (21:00)
[2021-07-20] MEDS: Lactated Ringers 1,000 ML IV SCH (04:39)
[2021-07-20 07:12] LABS: CHLORIDE,CL 102 mmol/L (98-107); SODIUM,NA 140 mmol/L (136-145)
[2021-07-20] MEDS ORDERED: Furosemide 20 MG Tab PO SCH (09:00)
[2021-07-20] MEDS ORDERED: Enoxaparin 40 MG/0.4 ML Syringe SUBCUT SCH (09:00)
--- NOTE | 2021-07-20 13:55 | PCM.DCSUM1 ---
Discharge Summary - Hospital Course Free Text/Narrative:: see below HPI Initial Comments: Susan Harrington is a 71-year-old female with past medical history no significant for essential hypertension, type 2 diabetes mellitus which is diet controlled, polycythemia vera which is controlled with phlebotomy, mixed hyperlipidemia. She presented to the emergency department with complaints of increased shortness of breath that started on 07/12/2021. While in emergency department she was found to have an elevated white blood count. She was afebrile and hemodynamically stable. Blood cultures and urine cultures were drawn. She was started on empiric antibiotics for a community-acquired pneumonia. CT chest revealed right upper lobe middle lobe opacity. She was continued on ceftriaxone and azithromycin. Urine culture came back positive for greater than 100,000 colony-forming units of gram-negative rods. She remained afebrile and hemodynamically stable. White blood count trended down. She was thought to be medically stable for discharge from the hospital on the afternoon of 07/20/2021. She will continue on antibiotics. She will follow closely with her primary care provider. There were no further questions or concerns at time of discharge. Diagnosis: Stroke: No Modified Michelle Scale: No Signif.Disability Despite Sympt.Able to Carry Out Usual Act./Duties Modified Michelle Scale Score: 1 - Discharge Data Discharge Date: 07/20/21 Discharge Disposition: Home, Self-Care 01 Condition: Good - Referral to Home Health Primary Care Physician: PCP None - Patient Summary/Data Hospital Course: Susan Harrington is a 71-year-old female with past medical history no significant for essential hypertension, type 2 diabetes mellitus which is diet controlled, polycythemia vera which is controlled with phlebotomy, mixed hyperlipidemia. She presented to the emergency department with complaints of increased shortness of breath that started on 07/12/2021. While in emergency department she was found to have an elevated white blood count. She was afebrile and hemodynamically stable. Blood cultures and urine cultures were drawn. She was started on empiric antibiotics for a community-acquired pneumonia. CT chest revealed right upper lobe middle lobe opacity. She was continued on ceftriaxone and azithromycin. Urine culture came back positive for greater than 100,000 colony-forming units of gram-negative rods. She remained afebrile and hemodynamically stable. White blood count trended down. She was thought to be medically stable for discharge from the hospital on the afternoon of 07/20/2021. She will continue on antibiotics. She will follow closely with her primary care provider. There were no further questions or concerns at time of discharge. - Patient Instructions Diet: Usual Diet as Tolerated Driving: May Drive Today Showering/Bathing: May Shower - Discharge Plan *PRESCRIPTION DRUG MONITORING PROGRAM REVIEWED*: Not Applicable *COPY OF PRESCRIPTION DRUG MONITORING REPORT IN PATIENT TG: Not Applicable Home Medications: Home Meds Allopurinol [Zyloprim] 300 mg PO DAILY 07/19/21 [History] Aspirin 81 mg PO DAILY 07/19/21 [History] Furosemide 20 mg PO DAILY 07/19/21 [History] Hydroxyurea [Hydrea] 1,000 mg PO MOTH 07/19/21 [History] Hydroxyurea [Hydrea] 500 mg PO .[id number] 07/19/21 [History] Losartan Potassium 100 mg PO DAILY 07/19/21 [History] atorvaSTATin [Lipitor] 20 mg PO BEDTIME 07/19/21 [History] metFORMIN [Glucophage] 500 mg PO BIDMEALS 07/19/21 [History] Ciprofloxacin HCl [Cipro] 250 mg PO BID 3 Days tablet 07/20/21 [Rx] Oxygen Therapy Mode: Room Air Forms: ED Department Discharge Referrals: Cristiana Kim NP [Ordering Only Provider] - - Discharge Summary/Plan Comment DC Time >30 min.: Yes Total # of Minutes for Discharge Time: 45 - General Info Date of Service: 07/20/21 Admission Dx/Problem (Free Text: Admission Diagnosis/Problem Admission Diagnosis/Problem community acquired Pneumonia - Review of Systems General: Reports: No Symptoms HEENT: Reports: No Symptoms Pulmonary: Reports: No Symptoms, Cough, Sputum. Denies: Wheezing Gastrointestinal: Reports: No Symptoms Genitourinary: Reports: No Symptoms Musculoskeletal: Reports: No Symptoms Skin: Reports: No Symptoms Neurological: Reports: No Symptoms Psychiatric: Reports: No Symptoms - Patient Data Vitals - Most Recent: Last Vital Signs Temp 99.1 F 07/20/21 07:57 Pulse 90 07/20/21 07:57 Resp 20 07/20/21 07:57 BP 131/60 07/20/21 07:57 Pulse Ox 94 L 07/20/21 07:57 Weight - Most Recent: 131 lb I&O - Last 24 hours: Intake & Output 07/19/21 07/20/21 07/20/21 22:59 06:59 14:59 Output Total 100 Balance -100 Lab Results - Last 24 hrs: Laboratory Results - last 24 hr 07/19/21 07/19/21 07/19/21 Range/Units 13:45 13:45 13:45 WBC 28.7 H* (5.0-10.0) 10^3/uL RBC 4.19 L (4.2-5.4) 10^6/uL Hgb 13.9 (12.0-16.0) g/dL Hct 42.2 (37.0-47.0) % MCV 100.7 H (80-100) fL MCH 33.2 (27.0-34.0) pg MCHC 32.9 L (33.0-35.0) g/dL Plt Count 263 (150-450) 10^3/uL Neut % (Auto) 91.4 H (42.2-75.2) % Lymph % (Auto) 2.4 L (20.5-50.1) % [place] % (Auto) 6.0 (2-8) % Eos % (Auto) 0.0 L (1.0-3.0) % Baso % (Auto) 0.2 (0.0-1.0) % Add Manual Diff Yes Neutrophils % (Manual) 94 H (42-75) % Band Neutrophils % 1 % Lymphocytes % (Manual) 2 L (20-50) % Monocytes % (Manual) 3 (2-8) % Macrocytosis 1+ slight PT (9.0-12.0) SEC INR (0.9-1.2) APTT (22.0-34.0) SEC D-Dimer, Quantitative (0-400) ng/mL Sodium 137 (136-145) mmol/L Potassium 4.7 (3.5-5.1) mmol/L Chloride 98 (98-107) mmol/L Carbon Dioxide 25 (21-32) mmol/L Anion Gap 18.7 H (7-13) mEq/L BUN 25 H (7-18) mg/dL Creatinine 0.91 (0.55-1.02) mg/dL Est Cr Clr Drug Dosing 46.23 mL/min Estimated GFR (MDRD) > 60 BUN/Creatinine Ratio 27.5 (No establ ref range) Glucose 139 H (70-99) mg/dL Lactic Acid (0.4-2.0) mmol/L Calcium 9.3 (8.5-10.1) mg/dL Magnesium 2.2 (1.8-2.4) mg/dL Ferritin (8-252) mg/mL Total Bilirubin 1.3 H (0.2-1.0) mg/dL AST 41 H (15-37) U/L ALT 17 (14-59) U/L Alkaline Phosphatase 141 H (46-116) U/L Troponin I High Sens 23 (<=51) pg/mL C-Reactive Protein < 0.2 (0.0-0.9) mg/dL B-Natriuretic Peptide 85 (0-100) pg/ml Total Protein 8.0 (6.4-8.2) g/dL Albumin 2.9 L (3.4-5.0) g/dL Globulin 5.1 Albumin/Globulin Ratio 0.57 Urine Color (YELLOW) Urine Appearance (CLEAR) Urine pH (5.0-9.0) Ur Specific Weir (1.005-1.030) Urine Protein (NEGATIVE) Urine Glucose (UA) (NEGATIVE) Urine Ketones (NEGATIVE) Urine Occult Blood (NEGATIVE) Urine Nitrite (NEGATIVE) Urine Bilirubin (NEGATIVE) Urine Urobilinogen (0.2-1.0) mg/dL Ur Leukocyte Esterase (NEGATIVE) Urine RBC (0-5) /HPF Urine WBC (0-5/HPF) /HPF Ur Epithelial Cells (NOT SEEN) /HPF Urine Bacteria (0-FEW/HPF) /HPF Influenza Type A RNA Negative (NEGATIVE) Influenza Type B RNA Negative (NEGATIVE) SARS-CoV-2 RNA (KATARINA) Negative (NEGATIVE) 07/19/21 07/19/21 07/19/21 Range/Units 13:45 13:45 13:45 WBC (5.0-10.0) 10^3/uL RBC (4.2-5.4) 10^6/uL Hgb (12.0-16.0) g/dL Hct (37.0-47.0) % MCV (80-100) fL MCH (27.0-34.0) pg MCHC (33.0-35.0) g/dL Plt Count (150-450) 10^3/uL Neut % (Auto) (42.2-75.2) % Lymph % (Auto) (20.5-50.1) % [place] % (Auto) (2-8) % Eos % (Auto) (1.0-3.0) % Baso % (Auto) (0.0-1.0) % Add Manual Diff Neutrophils % (Manual) (42-75) % Band Neutrophils % % Lymphocytes % (Manual) (20-50) % Monocytes % (Manual) (2-8) % Macrocytosis PT 10.7 (9.0-12.0) SEC INR 1.1 (0.9-1.2) APTT 29.4 (22.0-34.0) SEC D-Dimer, Quantitative 2020 H (0-400) ng/mL Sodium (136-145) mmol/L Potassium (3.5-5.1) mmol/L Chloride (98-107) mmol/L Carbon Dioxide (21-32) mmol/L Anion Gap (7-13) mEq/L BUN (7-18) mg/dL Creatinine (0.55-1.02) mg/dL Est Cr Clr Drug Dosing mL/min Estimated GFR (MDRD) BUN/Creatinine Ratio (No establ ref range) Glucose (70-99) mg/dL Lactic Acid 1.6 (0.4-2.0) mmol/L Calcium (8.5-10.1) mg/dL Magnesium (1.8-2.4) mg/dL Ferritin 230 (8-252) mg/mL Total Bilirubin (0.2-1.0) mg/dL AST (15-37) U/L ALT (14-59) U/L Alkaline Phosphatase (46-116) U/L Troponin I High Sens (<=51) pg/mL C-Reactive Protein (0.0-0.9) mg/dL B-Natriuretic Peptide (0-100) pg/ml Total Protein (6.4-8.2) g/dL Albumin (3.4-5.0) g/dL Globulin Albumin/Globulin Ratio Urine Color (YELLOW) Urine Appearance (CLEAR) Urine pH (5.0-9.0) Ur Specific [place]ir (1.005-1.030) Urine Protein (NEGATIVE) Urine Glucose (UA) (NEGATIVE) Urine Ketones (NEGATIVE) Urine Occult Blood (NEGATIVE) Urine Nitrite (NEGATIVE) Urine Bilirubin (NEGATIVE) Urine Urobilinogen (0.2-1.0) mg/dL Ur Leukocyte Esterase (NEGATIVE) Urine RBC (0-5) /HPF Urine WBC (0-5/HPF) /HPF Ur Epithelial Cells (NOT SEEN) /HPF Urine Bacteria (0-FEW/HPF) /HPF Influenza Type A RNA (NEGATIVE) Influenza Type B RNA (NEGATIVE) SARS-CoV-2 RNA (KATARINA) (NEGATIVE) 07/19/21 07/20/21 07/20/21 Range/Units 15:55 05:45 05:45 WBC 25.2 H* (5.0-10.0) 10^3/uL RBC 3.69 L (4.2-5.4) 10^6/uL Hgb 12.4 D (12.0-16.0) g/dL Hct 37.9 (37.0-47.0) % MCV 102.7 H (80-100) fL MCH 33.6 (27.0-34.0) pg MCHC 32.7 L (33.0-35.0) g/dL Plt Count 234 (150-450) 10^3/uL Neut % (Auto) (42.2-75.2) % Lymph % (Auto) (20.5-50.1) % [place] % (Auto) (2-8) % Eos % (Auto) (1.0-3.0) % Baso % (Auto) (0.0-1.0) % Add Manual Diff Neutrophils % (Manual) (42-75) % Band Neutrophils % % Lymphocytes % (Manual) (20-50) % Monocytes % (Manual) (2-8) % Macrocytosis PT (9.0-12.0) SEC INR (0.9-1.2) APTT (22.0-34.0) SEC D-Dimer, Quantitative (0-400) ng/mL Sodium 140 (136-145) mmol/L Potassium 4.0 (3.5-5.1) mmol/L Chloride 102 (98-107) mmol/L Carbon Dioxide 26 (21-32) mmol/L Anion Gap 16.0 H (7-13) mEq/L BUN 21 H (7-18) mg/dL Creatinine 0.86 (0.55-1.02) mg/dL Est Cr Clr Drug Dosing 42.47 mL/min Estimated GFR (MDRD) > 60 BUN/Creatinine Ratio (No establ ref range) Glucose 111 H (70-99) mg/dL Lactic Acid (0.4-2.0) mmol/L Calcium 8.7 (8.5-10.1) mg/dL Magnesium (1.8-2.4) mg/dL Ferritin (8-252) mg/mL Total Bilirubin (0.2-1.0) mg/dL AST (15-37) U/L ALT (14-59) U/L Alkaline Phosphatase (46-116) U/L Troponin I High Sens (<=51) pg/mL C-Reactive Protein (0.0-0.9) mg/dL B-Natriuretic Peptide (0-100) pg/ml Total Protein (6.4-8.2) g/dL Albumin (3.4-5.0) g/dL Globulin Albumin/Globulin Ratio Urine Color Yellow (YELLOW) Urine Appearance Cloudy (CLEAR) Urine pH 5.5 (5.0-9.0) Ur Specific [place] 1.010 (1.005-1.030) Urine Protein 30 H (NEGATIVE) Urine Glucose (UA) Negative (NEGATIVE) Urine Ketones 15 H (NEGATIVE) Urine Occult Blood Moderate H (NEGATIVE) Urine Nitrite Negative (NEGATIVE) Urine Bilirubin Small H (NEGATIVE) Urine Urobilinogen 1.0 (0.2-1.0) mg/dL Ur Leukocyte Esterase Trace H (NEGATIVE) Urine RBC 10-20 H (0-5) /HPF Urine WBC 10-20 H (0-5/HPF) /HPF Ur Epithelial Cells Moderate H (NOT SEEN) /HPF Urine Bacteria Moderate H (0-FEW/HPF) /HPF Influenza Type A RNA (NEGATIVE) Influenza Type B RNA (NEGATIVE) SARS-CoV-2 RNA (KATARINA) (NEGATIVE) [facility] Results - Last 24 hrs: Microbiology 07/19/21 15:55 Urine Culture - Preliminary Urine, Voided Med Orders - Current: Current Medications Acetaminophen (Acetaminophen 325 Mg Tab) 650 mg PO Q4H PRN PRN Reason: Pain (Mild 1-3)/fever Albuterol/Ipratropium (Albuterol/Ipratropium 3.0-0.5 Mg/3 Ml Neb Soln) 3 ml NEB Q4H PRN PRN Reason: shortness of breath/wheezing Last Admin: 07/20/21 11:13 Dose: 3 ml Documented by: Allopurinol (Allopurinol 300 Mg Tab) 300 mg PO DAILY [facility] Aspirin (Aspirin 81 Mg Tab.Chew) 81 mg PO DAILY [facility] Atorvastatin Calcium (Atorvastatin 20 Mg Tab) 20 mg PO BEDTIME [facility] Last Admin: 07/19/21 20:29 Dose: 20 mg Documented by: Ciprofloxacin (Ciprofloxacin 500 Mg Tab) 250 mg PO ONETIME ONE Stop: 07/20/21 14:01 Enoxaparin Sodium (Enoxaparin 40 Mg/0.4 Ml Syringe) 40 mg SUBCUT DAILY [facility] Last Admin: 07/20/21 11:13 Dose: Not Given Documented by: Furosemide (Furosemide 20 Mg Tab) 20 mg PO DAILY [facility] Last Admin: 07/20/21 11:13 Dose: 20 mg Documented by: Lactated Ringer's (Ringers, Lactated) 1,000 mls @ 100 mls/hr IV ASDIRECTED [facility] Last Admin: 07/20/21 04:39 Dose: 100 mls/hr Documented by: Losartan Potassium (Losartan 50 Mg Tab) 100 mg PO DAILY [facility] Ondansetron HCl (Ondansetron 4 Mg Tab.Dis) 4 mg PO Q6H PRN PRN Reason: nausea, able to take PO Polyethylene Glycol (Polyethylene Glycol 3350 Powder 17 Gm Packet) 17 gm PO DAILY PRN PRN Reason: Constipation Sodium Chloride (Sodium Chloride 0.9% 10 Ml Syringe) 10 ml FLUSH ASDIRECTED PRN PRN Reason: Keep Vein Open Discontinued Medications Furosemide (Furosemide 20 Mg Tab) 20 mg PO ASDIRECTED [facility] Ceftriaxone Sodium 2 gm/ (Sodium Chloride) 100 mls @ 200 mls/hr IV ONETIME ONE Stop: 07/19/21 16:26 Last Admin: 07/19/21 16:30 Dose: 200 mls/hr Documented by: Azithromycin 500 mg/ Sodium (Chloride) 250 mls @ 250 mls/hr IV ONETIME ONE Stop: 07/19/21 16:57 Last Admin: 07/19/21 16:31 Dose: 250 mls/hr Documented by: Iopamidol (Iopamidol 755 Mg/Ml 100 Ml Bottle) 100 ml IVPUSH ONETIME ONE Stop: 07/19/21 15:15 Last Admin: 07/19/21 15:42 Dose: 57 ml Documented by: - Exam Quality Assessment: Denies: Supplemental Oxygen, DVT Prophylaxis, Skin Breakdown General: Reports: Alert, Oriented, Cooperative, No Acute Distress HEENT: Reports: EOMI Neck: Reports: Supple, No JVD Lungs: Reports: Normal Respiratory Effort, Crackles (right side). Denies: Wheezing GI/Abdominal Exam: Non-Tender (Female) Exam: Deferred Rectal (Female) Exam: Deferred Back Exam: Reports: Full Range of Motion Extremities: Normal Range of Motion, Non-Tender Skin: Reports: Dry, Intact Wound/Incisions: Reports: Healing Well Psy/Mental Status: Reports: Alert, Normal Affect, Normal Mood *Q Meaningful Use (DIS) - VTE *Q VTE Mechanical Contraindications *Q: Tx/Proc Refused byPt VTE Pharmacological Contraindications *Q: Tx/Proc Refused by Pt VTE Anticoagulation Contraindications: Tx/proc Refused by PT - Stroke *Q Aspirin Contraindications Stroke *Q: Patient Refusal Anticoagulation Contraindications Stroke *Q: TX/PROC Refused by PT Antithrombotic Contraindications Stroke *Q: TX/PROC Refused by PT Statin Contraindications Stroke *Q: TX/PROC Refused by PT Rehabilitation Assessment Contraindication *Q: Tx/proc refused by pt - AMI *Q Aspirin Contraindications AMI *Q: TX/PROC Refused by PT Statin Contraindications AMI *Q: TX/Proc Refused by PT
[2021-07-20] MEDS ORDERED: Ciprofloxacin 500 MG Tab PO ONE (14:00)
[2021-07-21] MEDS ORDERED: Aspirin 81 MG Tab.Chew PO SCH (09:00)
[2021-07-21] MEDS ORDERED: Losartan 50 MG Tab PO SCH (09:00)
[2021-07-21] MEDS ORDERED: Allopurinol 300 MG Tab PO SCH (09:00)
== END 2021-07-20 15:15 | disposition home or self-care (01) ==
LOC: DL.ED 13:21 → DL.MS 16:09
PROVIDERS: ADMIT Hospitalist; ATTEND Hospitalist
DX: J18.9 Pneumonia, unspecified organism (principal); J98.11 Atelectasis; E11.9 Type 2 diabetes mellitus without complications; D45 Polycythemia vera; I10 Essential (primary) hypertension; E78.2 Mixed hyperlipidemia; G47.33 Obstructive sleep apnea (adult) (pediatric); J45.909 Unspecified asthma, uncomplicated; D50.9 Iron deficiency anemia, unspecified; Z20.822 Contact with and (suspected) exposure to COVID-19; Z79.899 Other long term (current) drug therapy; Z79.82 Long term (current) use of aspirin; Z79.84 Long term (current) use of oral hypoglycemic drugs; Z98.890 Other specified postprocedural states
CPT/HCPCS: 0240U; 36415; 71260; 80048; 80053; 81001; 82728; 83605; 83735; 83880; 84484; 85025; 85027; 85379; 85610; 85730; 86140; 87040; 87086; 87088; 87186; 93005; 96365; 96375; 99285; A9270; G0378; J0456; J0696; J7050; J7120; Q9967; J7620-GY

== ENCOUNTER 2025-04-28 12:39 | Emergency (ER) | payer MEDICARE, MEDICAID | END 2025-04-28 13:18 | disposition home or self-care (01) | LOC: DL.ED 12:39 | DX: M53.3 Sacrococcygeal disorders, not elsewhere classified (principal); I10 Essential (primary) hypertension; J45.909 Unspecified asthma, uncomplicated; M19.90 Unspecified osteoarthritis, unspecified site; Z90.49 Acquired absence of other specified parts of digestive tract; Z79.82 Long term (current) use of aspirin; Z79.84 Long term (current) use of oral hypoglycemic drugs; Z79.899 Other long term (current) drug therapy; W01.198A Fall on same level from slipping, tripping and stumbling with subsequent striking against other object, initial encounter | CPT/HCPCS: 99283 ==